=== PATIENT | female | born 1985 | race Two or more races ===

== ENCOUNTER 2017-04-07 10:13 | Emergency (ER) | payer MEDICAID ==
[~2017-04-07 10:13] MED LIST: DIFL150T PO
[2017-04-07 10:18] VITALS: BP 128/86; PULSE 82; RESP 18; TEMP 98.4; O2SAT 100
[2017-04-07] MEDS ORDERED: PRENTAB14 PO (10:24)
--- NOTE | 2017-04-07 10:44 | PD ---
HPI Chief Complaint: Abdominal Pain Time Seen by Provider: 10:26 Travel History International Travel<30 days: No Contact w/Intl Traveler<30days: No Traveled to known affect area: No History of Present Illness HPI 31-year-old female complains of low abdominal pain and pelvic pain and vaginal spotting. Patient is 2 para 1 AB 0. Patient is 12 week by date. Patient started having brownish vaginal discharge since yesterday. Patient started having sharp constant low abdominal since this morning. Patient states that she has intermittent low abdominal pain since that started up a . Patient states the symptoms got better recently. Patient denies any nausea vomiting diarrhea. Patient denies any dysuria or frequency. Patient has been seen by OB and had blood tests and pelvic ultrasound done. Patient's blood type O+ PFSH Past Medical History Autoimmune Disease: No Anxiety: No Depression: No Cancer: No Cardiovascular Problems: Yes Diabetes: No Diminished Hearing: No Endocrine: No Genitourinary: No Immune Disorder: No Implanted Vascular Access Dvce: No Musculoskeletal: No Neurologic: No Psychiatric: No Reproductive: No Respiratory: No Immunizations Current: Yes Sickle Cell Disease: No Thyroid Disease: No Influenza Vaccination: No ?: LMP: 01/13/2017 : 1 Para: 1 Miscarriage: 0 : 0 Ovarian Cysts: Yes Past Surgical History Section: No Other Surgery: No Social History Alcohol Use: No Tobacco Use: No Substance Use: No Allergies-Medications (Allergen,Severity, Reaction): Coded Allergies: No Known Allergies (Unverified , 04/07/17) Reported Meds & Prescriptions Reported Meds & Active Scripts Active Reported Tablet (Pnv No.95/Ferrous Fum/Folic AC) 1 Each Tablet 1 Tab PO DAILY Review of Systems General / Constitutional: No: Fever Eyes: No: Visual changes HENT: No: Headaches Cardiovascular: No: Chest Pain or Discomfort Respiratory: No: Shortness of Breath Gastrointestinal: Positive: Abdominal Pain Genitourinary: Positive: Vaginal Bleeding, No: Dysuria Musculoskeletal: No: Pain Skin: No Rash Neurologic: No: Weakness Psychiatric: No: Depression Endocrine: No: Polydipsia Hematologic/Lymphatic: No: Easy Bruising Physical Exam Narrative GENERAL: Well-nourished, well-developed patient. SKIN: Focused skin assessment warm/dry. HEAD: Normocephalic. EYES: No scleral icterus. No injection or drainage. NECK: Supple, trachea midline. No JVD or lymphadenopathy. CARDIOVASCULAR: Regular rate and rhythm without murmurs, gallops, or rubs. RESPIRATORY: Breath sounds equal bilaterally. No accessory muscle use. GASTROINTESTINAL: Abdomen soft, non-tender, nondistended. MUSCULOSKELETAL: No cyanosis, or edema. BACK: Nontender without obvious deformity. No CVA tenderness. 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 Patient has small amount of brownish discharge in the vaginal vault. No fresh blood. Data Data Last Documented VS Vital Signs Date Time Temp Pulse Resp B/P Pulse Ox O2 Delivery O2 Flow Rate FiO2 04/07/17 10:18 98.4 82 18 128/86 100 Orders Urinalysis - C+S If Indicated (04/07/17 10:39) Labs Laboratory Tests Test 04/07/17 10:45 Urine Collection Type CLEAN CATCH Urine Color YELLOW Urine Turbidity CLEAR Urine pH 6.5 Urine Specific [place] 1.008 Urine Protein NEG mg/dL Urine Glucose (UA) NEG mg/dL Urine Ketones NEG mg/dL Urine Occult Blood NEG Urine Nitrite NEG Urine Bilirubin NEG Urine Leukocyte Esterase NEG Urine WBC 0-2 /hpf Microscopic Urinalysis Comment CULT NOT INDICATED Urine Collection Time 1045 MDM Medical Decision Making Medical Screen Exam Complete: Yes Emergency Medical Condition: Yes Interpretation(s) 11:29 AM. UA is negative. Differential Diagnosis Differential diagnosis including bacterial vaginosis, cervicitis, threatened AB Narrative Course 31-year-old female low abdominal pelvic pain and vaginal spotting. Patient is a week . Patient's blood type O+. Procedures Procedure Narrative Emergency Department Pelvic ultrasound was performed with patient consent. The curvilinear probe was used in the transverse and sagittal views within the suprapubic region revealing single intrauterine . heart rate was 146. Fetus active Diagnosis Primary Impression: Pelvic pain during Patient Instructions: General Instructions Additional Instructions: Continue with vitamin. Tylenol for pain. Follow-up with OB physician. Return if increased pelvic pain, increased vaginal bleeding. Med/Other Pt SpecificInfo: No Meds Exist/No RX given Disposition: 01 DISCHARGE HOME Condition: Stable Stephen Salomon MD Apr 07, 2017 10:44
[2017-04-07 11:03] LABS: BLOOD, URINE NEG (NEG); GLUCOSE,URINE NEG (NEG); KETONE, URINE NEG (NEG); NITRITE,URINE NEG (NEG); PH, URINE 6.5 (5.0-8.5)
[2017-04-07 11:23] LABS: METHOD OF COLLECTION CLEAN CATCH; URINE COLOR YELLOW (YELLW/STRAW); WBC, URINE 0-2 /hpf (0-5)
[2017-04-07 11:24] LABS: COMMENT (UR) CULT NOT INDICATED; CULTURE IF INDICATED CULT NOT INDICATED
== END 2017-04-07 11:44 | disposition home or self-care (01) ==
LOC: PHED 10:13
DX: O26.891 Other specified pregnancy related conditions, first trimester (principal); R10.2 Pelvic and perineal pain; Z3A.12 12 weeks gestation of pregnancy
CPT/HCPCS: 81001; 99284

== ENCOUNTER 2017-10-27 17:23 | Emergency (ER) | payer MEDICAID ==
[~2017-10-27 17:23] MED LIST changes: -DIFL150T PO; +PREN28TA2 PO
[2017-10-27 19:00] VITALS: PULSE 111
[2017-10-27 19:05] VITALS: PULSE 109
[2017-10-27 19:10] VITALS: BP 122/77; PULSE 102
--- NOTE | 2017-10-27 19:27 | PD ---
HPI Chief Complaint headache, dizziness, abdominal pain Date Seen: Oct 27, 2017 Travel History International Travel<30 Days: No Contact w/Intl Traveler<30Days: No History of Present Illness HPI Ms. Garibay is a [address] Aguilar at a reported 41 weeks [place] ( no records yet available) who presents with multiple complaints including dizziness, headache, abdominal pain, shortness of breath, leg pain, and generalized pain. Patient reports that she was talking with staff at her OB provider's office and was told to follow-up in the office tomorrow; she felt that she would like to be evaluated tonight for her symptoms instead due to her considering the possibility of delivering at [place]. Patient reports that her abdominal pain has been intermittent cramping as well as constant pain, it has been present when pushing a shopping cart over the past several days. Patient reports that her shortness of breath has also been present for the past several days along with abdominal pain. Patient also reports bilateral leg pain, worse on her R leg, when she ambulates. Patient also reports headache and nausea; she does not report any associated vision changes, or history of elevated blood pressure. Patient reports increased clear vaginal discharge for several days but no gush of fluid concerning for ROM or vaginal bleeding. Patient reports normal movement. Patient reports benign course with reassuring ultrasounds. Patient does not know her GBS status. Weeks Gestation: 41 Para: 1 : 2 History Past Medical History Medical History: Denies Significant Hx Obstetric History Obstetric History Past Surgical History Surgical History: No Previous Surgery Family History Narrative Family History dad- lung cancer Social History Alcohol Use: No Tobacco Use: No Substance Abuse: No Allergies-Medications (Allergen,Severity, Reaction): Coded Allergies: No Known Allergies (Unverified , 04/07/17) Home Meds Reported Medications Pnv No.95/Ferrous Fum/Folic AC ( Tablet) 1 Each Tablet, 1 TAB PO DAILY 04/07/17 Review of Systems General / Constitutional: No: Fever Eyes: No: Blurred Vision HENT: Headaches (chronic) Cardiovascular: No: Chest Pain or Discomfort, Palpitations Respiratory: No: Short of Breath Gastrointestinal: Abdominal Pain, No: Nausea, Vomiting Genitourinary: No: Urgency, Dysuria Skin: No Rash, No Itching Neurologic: No: Weakness, Dizziness Psychiatric: Anxiety (patient reports increased stress), No: Depression Physical Exam VS at 1910: HR 102, BP 122/77 Narrative GENERAL: Well-nourished, well-developed patient. SKIN: Warm and dry. HEAD: Normocephalic and atraumatic. EYES: No scleral icterus. No injection or drainage. ENT: No nasal drainage noted. Mucous membranes pink. Airway patent. CARDIOVASCULAR: Regular rate and rhythm without murmurs. RESPIRATORY: CTAB; normal rate EXTREMITIES: No cyanosis or edema. NEUROLOGICAL: Awake and alert. Motor and sensory function grossly within normal limits. ABDOMEN/GI: Abdomen soft, non-tender, bowel sounds present, no rebound, no guarding Gravid GENITOURINARY: External Genitalia: intact and normal in appearance Cervix: Dilatation: 3cm Effacement: 40% Station: -1 Presentation: V Membranes: Intact Uterine Contractions: Occasional, intermittent FHT's: Category: 1- initial tachy in association with maternal tachy; improved to baseline 150 with fluids Baseline: 150 Reactive: Y Variability: Mod Decels: None Data Data Vital Signs Reviewed: Yes Orders Orders Vital Signs (Adult) .ON ADMISSION (10/27/17 19:09) ^ Labor Status (10/27/17 19:09) ^ Non Stress Test (10/27/17 19:09) ^ Hydration (10/27/17 19:09) MDM Medical Record Reviewed: Yes Narrative Course / MDM Ms. Garibay is a [address] Aguilar at a reported 41 weeks GA ( no records yet available) -Multiple complaints: dizziness, headache, abdominal pain, shortness of breath, leg pain, and generalized pain -Mild maternal tachycardia -Reactive rhythm with normal accels; baseline ~160 -Cervix 3/50%/-1 -Intermittent contractions -Physical exam benign Plan: -Will continue EFM and CTG -Will monitor maternal HR -Will provide oral hydration -Will attempt to obtain records Interval: -Patient with reassuring rhythm with baseline 150; cat 1. -Occasional contractions; none regular -Maternal HR ~100 -Mother reported that she feels that the majority of her symptoms are due to stress and frustration regarding her ; she plans to follow-up tomorrow with her OB provider Updated plan: -Discussed with patient that she does not seem to be in labor at this time due to lack of regular contractions. Patient also reassured regarding her reassuring heart tracing. Patient thinks that her symptoms are due to stress; she will plan to return home and hydrate frequently. Patient agrees to return to OB with any concern for decreased movement, vaginal bleeding or ROM, or any other concerns. Patient otherwise will follow-up with her OB provider tomorrow Diagnosis Diagnosis: Primary Impression: Abdominal pain affecting Additional Impressions: 41 weeks gestation of Headache in Disposition: 01 DISCHARGE HOME Condition: Stable Patient Instructions: Abdominal Pain in (ED), Movement (ED), General Instructions Devendra Cochran MD, R3 Oct 27, 2017 19:27
== END 2017-10-27 19:45 | disposition home or self-care (01) ==
LOC: HOBED 17:23
DX: O26.893 Other specified pregnancy related conditions, third trimester (principal); R10.9 Unspecified abdominal pain; Z3A.41 41 weeks gestation of pregnancy
CPT/HCPCS: 59025

== ENCOUNTER 2018-01-16 13:23 | Emergency (ER) | payer MEDICAID ==
[~2018-01-16] VITALS: Ht 154.9 cm; Wt 95.0 kg
[2018-01-16 13:26] VITALS: BP 132/71; PULSE 81; RESP 16; TEMP 98.8; O2SAT 98
[2018-01-16 13:45] LABS: BILIRUBIN, URINE NEG (NEG); BLOOD, URINE LARGE (NEG); GLUCOSE,URINE NEG (NEG); KETONE, URINE NEG (NEG); NITRITE,URINE NEG (NEG); URINE COLOR YELLOW (YELLW/STRAW); URINE LEUKOCYTE ESTERASE SMALL (NEG)
[2018-01-16 13:54] LABS: BACTERIA, URINE RARE /hpf; RBC, URINE 15-19 /hpf (0-3); WHITE BLOOD CELL CLUMPS FEW
--- NOTE | 2018-01-16 14:11 | PD ---
HPI Chief Complaint: Abdominal Pain Time Seen by Provider: 13:57 Travel History International Travel<30 days: No Contact w/Intl Traveler<30days: No Traveled to known affect area: No History of Present Illness HPI 32yo F with no significant PMH presents to the ED with c/o right lower abdominal pain for 9 days. Pain is sharp, constant and sometimes radiates across lower abdomen and to back. Sometimes it feels like menstrual cramps. Pt had IUD placed 3 weeks ago and has been having intermittent vaginal bleeding since with some brownish vaginal discharge. Denies any fever, chest pain, sob, n/v, dysuria, hematuria, focal weakness or numbness. Also mentioned mild throat pain for 2 days. PFSH Past Medical History Autoimmune Disease: No Anxiety: No Depression: No Cancer: No Cardiovascular Problems: Yes Diabetes: No Diminished Hearing: No Endocrine: No Genitourinary: No Heparin Induced Thrombocytopen: No Immune Disorder: No Implanted Vascular Access Dvce: No Musculoskeletal: No Neurologic: No Psychiatric: No Reproductive: No Respiratory: No Immunizations Current: Yes Sickle Cell Disease: No Thyroid Disease: No Influenza Vaccination: Yes ?: Not LMP: 12/21/17 : 1 Para: 1 Miscarriage: 0 : 0 Ovarian Cysts: Yes Past Surgical History Section: No Other Surgery: No Social History Alcohol Use: No Tobacco Use: No Substance Use: No Allergies-Medications (Allergen,Severity, Reaction): Coded Allergies: No Known Allergies (Unverified Allergy, Unknown, 01/16/18) Reported Meds & Prescriptions Reported Meds & Active Scripts Active Tylenol (Acetaminophen) 325 Mg Tab 650 Mg PO Q6H PRN Macrobid (Nitrofurantoin Monoh/Nitrofur Macro) 100 Mg Cap 100 Mg PO BID 5 Days Review of Systems Except as stated in HPI: all other systems reviewed are Neg Physical Exam Narrative GENERAL: 32yo F not in distress. SKIN: Focused skin assessment warm/dry. HEAD: Atraumatic. Normocephalic. EYES: Pupils equal and round. No scleral icterus. No injection or drainage. ENT: Throat: Clear. No erythema. Uvula midline. No tonsillar exudate. NECK: Trachea midline. No JVD. CARDIOVASCULAR: Regular rate and rhythm. No murmur appreciated. RESPIRATORY: No accessory muscle use. Clear to auscultation. Breath sounds equal bilaterally. GASTROINTESTINAL: Abdomen soft, +TTP RLQ. Some suprapubic ttp. No rebound tenderness or guarding. PELVIC: +Small amount of blood in vaginal vault. No CMT or adnexal tenderness bilaterally. MUSCULOSKELETAL: No obvious deformities. No clubbing. No cyanosis. No edema. NEUROLOGICAL: Awake and alert. No obvious cranial nerve deficits. Motor grossly within normal limits. Normal speech. PSYCHIATRIC: Appropriate mood and affect; insight and judgment normal. Data Data Last Documented VS Vital Signs Date Time Temp Pulse Resp B/P (MAP) Pulse Ox O2 Delivery O2 Flow Rate FiO2 01/16/18 16:15 01/16/18 16:09 74 16 97 Room Air 01/16/18 13:26 98.8 Orders Orders Urinalysis - C+S If Indicated (01/16/18 13:31) Ed Urine Pregnancytest Poc (01/16/18 13:31) Urine Culture (01/16/18 13:30) Complete Blood Count With Diff (01/16/18 14:05) Prothrombin Time / Inr (Pt) (01/16/18 14:05) Act Partial Throm Time (Ptt) (01/16/18 14:05) Ct Abd/Pel W Iv Contrast(Rout) (01/16/18 14:05) Gc And Chlamydia Pcr (01/16/18 14:05) Wet Prep Profile (01/16/18 14:05) Comprehensive Metabolic Panel (01/16/18 14:05) Iohexol 350 Inj (Omnipaque 350 Inj) (01/16/18 14:34) Ketorolac Inj (Toradol Inj) (01/16/18 15:00) Ed Discharge Order (01/16/18 16:03) Labs Laboratory Tests Test 01/16/18 13:30 01/16/18 14:15 01/16/18 14:20 Urine Collection Type CLEAN CATCH Urine Color YELLOW Urine Turbidity SL CLOUDY Urine pH 7.0 Urine Specific [place] 1.010 Urine Protein NEG mg/dL Urine Glucose (UA) NEG mg/dL Urine Ketones NEG mg/dL Urine Occult Blood LARGE Urine Nitrite NEG Urine Bilirubin NEG Urine Urobilinogen 0.2 MG/DL Urine Leukocyte Esterase SMALL Urine RBC 15-19 /hpf Urine WBC 3-5 /hpf Urine WBC Clumps FEW Urine Squamous Epithelial Cells 3-5 /hpf Urine Bacteria RARE /hpf Microscopic Urinalysis Comment CULTURE INDICATED White Blood Count 12.0 TH/MM3 Red Blood Count 4.60 MIL/MM3 Hemoglobin 13.2 GM/DL Hematocrit 39.9 % Mean Corpuscular Volume 86.8 FL Mean Corpuscular Hemoglobin 28.7 PG Mean Corpuscular Hemoglobin Concent 33.1 % Red Cell Distribution Width 14.0 % Platelet Count 394 TH/MM3 Mean Platelet Volume 7.3 FL Neutrophils (%) (Auto) 68.4 % Lymphocytes (%) (Auto) 25.6 % Monocytes (%) (Auto) 4.1 % Eosinophils (%) (Auto) 0.9 % Basophils (%) (Auto) 1.0 % Neutrophils # (Auto) 8.2 TH/MM3 Lymphocytes # (Auto) 3.1 TH/MM3 Monocytes # (Auto) 0.5 TH/MM3 Eosinophils # (Auto) 0.1 TH/MM3 Basophils # (Auto) 0.1 TH/MM3 CBC Comment DIFF FINAL Differential Comment Prothrombin Time 10.2 SEC Prothromb Time International Ratio 1.0 RATIO Activated Partial Thromboplast Time 28.7 SEC Blood Urea Nitrogen 8 MG/DL Creatinine 0.57 MG/DL Random Glucose 79 MG/DL Total Protein 7.6 GM/DL Albumin 3.5 GM/DL Calcium Level 8.3 MG/DL Alkaline Phosphatase 89 U/L Aspartate Amino Transf (AST/SGOT) 16 U/L Alanine Aminotransferase (ALT/SGPT) 24 U/L Total Bilirubin 0.2 MG/DL Sodium Level 137 MEQ/L Potassium Level 4.4 MEQ/L Chloride Level 104 MEQ/L Carbon Dioxide Level 25.6 MEQ/L Anion Gap 7 MEQ/L Estimat Glomerular Filtration Rate 125 ML/MIN Clue Cells (Wet Prep) NONE SEEN Vaginal Trichomonas (Wet Prep) NONE SEEN Vaginal Yeast (Wet Prep) NONE SEEN MDM Medical Decision Making Medical Screen Exam Complete: Yes Emergency Medical Condition: Yes Differential Diagnosis Appendicitis vs. UTI vs. nephrolithiasis vs. bacterial vaginosis vs. GC/ chlamydia vs. ovarian cyst Narrative Course 32yo F with RLQ pain for 9 days. Also has some brownish vaginal discharge. Pt also with vaginal bleeding intermittently since IUD placement. Pt is very well appearing but has tenderness in RLQ so will do CT to r/o appendicitis. Labs reviewed, WBC 12,000. CMP unremarkable. UA showed large blood. Rare bacteria. Culture indicated. Urine negative. CT a/p showed small amount of pelvic free fluid. Normal appendix. Intrauterine device. Pt given toradol and reevaluated at bedside. Pt said pain has resolved and has no tenderness on exam now. Pt instructed to follow up with [employer] and PMD as outpatient. Return precautions given. Diagnosis Primary Impression: UTI (urinary tract infection) Qualified Codes: N39.0 - Urinary tract infection, site not specified; R31.9 - Hematuria, unspecified Patient Instructions: General Instructions Departure Forms: Tests/Procedures Additional Instructions: Please follow up with your primary care physician and lab nurse in 3-7 days. Return to the ED if symptoms worsen. Med/Other Pt SpecificInfo: Prescription(s) given Scripts Acetaminophen (Tylenol) 325 Mg Tab 650 MG PO Q6H Y for PAIN SCALE 1 TO 4, #20 TAB 0 Refills Prov: Flora Reyes DO 01/16/18 Nitrofurantoin Monohydrate Macrocrystals (Macrobid) 100 Mg Cap 100 MG PO BID for Infection for 5 Days, #10 CAP 0 Refills Prov: Flora Reyes DO 01/16/18 Disposition: 01 DISCHARGE HOME Condition: Stable Flora Reyes DO Jan 16, 2018 14:11
[2018-01-16 14:28] LABS: AUTOMATED NEUTROPHIL # 8.2 TH/MM3 (1.8-7.7); BASOPHIL # 0.1 TH/MM3 (0-0.2); EOSINOPHIL # 0.1 TH/MM3 (0-0.4); EOSINOPHIL % 0.9 % (0.0-4.0); HEMATOCRIT 39.9 % (35.0-46.0); HEMOGLOBIN 13.2 GM/DL (11.6-15.3); LYMPH % 25.6 % (9.0-44.0); LYMPHOCYTE # 3.1 TH/MM3 (1.0-4.8); MEAN CELL VOLUME 86.8 FL (80.0-100.0); MEAN CORPUSCULAR HEMOGLOBIN 28.7 PG (27.0-34.0); MEAN CORPUSCULAR HGB CONC 33.1 % (32.0-36.0); MEAN PLATELET VOLUME 7.3 FL (7.0-11.0); MONO % 4.1 % (0.0-8.0); MONOCYTE # 0.5 TH/MM3 (0-0.9); NEUT % 68.4 % (16.0-70.0); PLATELET COUNT 394 TH/MM3 (150-450)
[2018-01-16] MEDS ORDERED: IOHEXOL 350 MG/ML 10 ML VIAL (for RAD DIAG) IVCONTRAST ONE (14:34)
[2018-01-16 14:35] LABS: CHLORIDE 104 MEQ/L (98-107); SODIUM (NA) 137 MEQ/L (136-145)
[2018-01-16 14:38] LABS: ALBUMIN 3.5 GM/DL (3.4-5.0); BICARBONATE 25.6 MEQ/L (21.0-32.0); BLOOD UREA NITROGEN 8 MG/DL (7-18); CALCIUM 8.3 MG/DL (8.5-10.1); GLUCOSE,RANDOM 79 MG/DL (74-106)
[2018-01-16 14:41] LABS: ALT (GPT) 24 U/L (10-53); AST (GOT) 16 U/L (15-37); CREATININE 0.57 MG/DL (0.50-1.00); GLOMERULAR FILTRATION RATE 125 ML/MIN (>89)
[2018-01-16 14:43] LABS: TOTAL BILIRUBIN ADULT 0.2 MG/DL (0.2-1.0); TOTAL PROTEIN 7.6 GM/DL (6.4-8.2)
[2018-01-16 14:44] LABS: ALKALINE PHOSPHATASE 89 U/L (45-117)
[2018-01-16 14:45] LABS: PROTHROMBIN TIME - PATIENT 10.2 SEC (9.8-11.6)
[2018-01-16 14:57] VITALS: BP 127/80; PULSE 74; RESP 16; O2SAT 95
--- NOTE | 2018-01-16 14:59 | RADRPT ---
EXAM DATE/TIME: 01/16/2018 14:28 [facility] COMPARISON: No previous studies available for comparison. INDICATIONS : Right lower quadrant pain. Evaluate for appendicitis. IV CONTRAST: 95 cc Omnipaque 350 (iohexol) IV ORAL CONTRAST: No oral contrast ingested. RADIATION DOSE: 20.65 CTDIvol (mGy) MEDICAL HISTORY : None SURGICAL HISTORY : None. ENCOUNTER: Initial ACUITY: 1 week PAIN SCALE: 8/10 LOCATION: Right lower quadrant TECHNIQUE: Volumetric scanning of the abdomen and pelvis was performed. Using automated exposure control and ad justment of the mA and/or kV according to patient size, radiation dose was kept as low as reasonably achievable to obtain optimal diagnostic quality images. DICOM format image data is available electro nically for review and comparison. FINDINGS: LOWER LUNGS: The visualized lower lungs are clear. LIVER: Decreased attenuation without lesion. There is no dilation of the biliary tree. No calcified gallst ones. SPLEEN: Normal size without lesion. PANCREAS: Within normal limits. KIDNEYS: Normal in size and shape. There is no mass, stone or hydronephrosis. ADRENAL GLANDS: Within normal limits. VASCULAR: There is no aortic aneurysm. BOWEL/MESENTERY: The stomach, small bowel, and colon demonstrate no acute abnormality. There is no free intraperitone al air or fluid. ABDOMINAL WALL: Within normal limits. RETROPERITONEUM: There is no lymphadenopathy. BLADDER: No wall thickening or mass. REPRODUCTIVE: Small amount of pelvic free fluid. Intrauterine device. INGUINAL: There is no lymphadenopathy or hernia. MUSCULOSKELETAL: Within normal limits for patient age. CONCLUSION: 1. Small amount of pelvic free fluid. 2. Normal appendix. 3. Intrauterine device. Alberto Rondon MD on January 16, 2018 at 14:55 Board Certified Radiologist. This report was verified electronically.
[2018-01-16] MEDS ORDERED: KETOROLAC TROMETHAMINE 30 MG/ML (IVP) VIAL IV PUSH ONE (15:00)
[2018-01-16] MEDS ORDERED: TYLE325T PO (16:00)
[2018-01-16] MEDS ORDERED: MACR100C2 PO (16:00)
[2018-01-16 16:09] VITALS: BP 122/77; PULSE 74; RESP 16; O2SAT 97
== END 2018-01-16 16:17 | disposition home or self-care (01) ==
LOC: PHED 13:23
DX: N39.0 Urinary tract infection, site not specified (principal); N89.8 Other specified noninflammatory disorders of vagina
CPT/HCPCS: 74177; 80053; 81001; 84703; 85025; 85610; 85730; 87086; 87210; 87491; 87591; 96374; 99284; J1885; Q9967